=== PATIENT | female | born 1955 | race Caucasian/White ===

== ENCOUNTER → 2018-03-28 | Outpatient (CLI) | payer BC, OTHER ==
[~2018-03-28] MED LIST: DOXY100C2 PO; GABA300C10 PO; LIDO700A5 TD; LISI5TAB7 PO; METH500T97 PO; OXYC-307 PO; SULF1TAB24 PO
== END | disposition home or self-care (01) ==
LOC: RAD 14:06
PROVIDERS: ATTEND Neurological Surgery
DX: Z01.818 Encounter for other preprocedural examination (principal); M50.30 Other cervical disc degeneration, unspecified cervical region; R07.9 Chest pain, unspecified
CPT/HCPCS: 71046; 93005

== ENCOUNTER 2018-11-07 05:45 | Emergency (ER) | payer MEDICARE, OTHER ==
[~2018-11-07] VITALS: Ht 154.9 cm; Wt 55.0 kg
[2018-11-07 05:51] VITALS: BP 138/81
[2018-11-07] MEDS ORDERED: DOXYCYCLINE 100 MG in DEXTROSE 5% 250 ML IV ONE (06:30)
[2018-11-07] MEDS ORDERED: SODIUM CHLORIDE FLUSH 10ML SYR IVF ONE (06:30)
[2018-11-07] MEDS ORDERED: DOXYCYCLINE 100MG TABLET ONE (06:53)
[2018-11-07] MEDS ORDERED: DOXYCYCLINE 100MG TABLET PO ONE (07:00)
--- NOTE | 2018-11-07 07:21 | NUR ---
Patient/Caregiver given discharge instructions and they have confirmed that they understand the instructions. Patient ambulatory with steady gait.
== END 2018-11-07 07:22 | disposition home or self-care (01) ==
LOC: ED 07:03
DX: S60.571A Other superficial bite of hand of right hand, initial encounter (principal); I89.1 Lymphangitis; W55.01XA Bitten by cat, initial encounter; Y93.89 Activity, other specified; Y92.89 Other specified places as the place of occurrence of the external cause; Y99.8 Other external cause status
CPT/HCPCS: 99283

== ENCOUNTER 2019-05-27 21:00 | Emergency (ER) | payer MEDICARE, OTHER ==
[~2019-05-27] VITALS: Ht 154.9 cm; Wt 51.8 kg
[2019-05-27 23:56] VITALS: BP 148/93
== END 2019-05-27 23:58 | disposition home or self-care (01) ==
LOC: ED 23:39
DX: S61.451A Open bite of right hand, initial encounter (principal); L03.113 Cellulitis of right upper limb; Z88.0 Allergy status to penicillin; W55.01XA Bitten by cat, initial encounter; Y93.89 Activity, other specified; Y92.89 Other specified places as the place of occurrence of the external cause; Y99.8 Other external cause status
CPT/HCPCS: 36415; 80048; 82040; 85025; 87040; 96365

== ENCOUNTER 2019-06-03 13:57 | Emergency (ER) | payer MEDICARE, OTHER ==
[~2019-06-03] VITALS: Ht 154.9 cm; Wt 52.0 kg
[2019-06-03 17:18] VITALS: BP 171/88
== END 2019-06-03 17:56 | disposition home or self-care (01) ==
LOC: ED 17:10
DX: R13.14 Dysphagia, pharyngoesophageal phase (principal)
CPT/HCPCS: 70360; 74220; 99284; J7512; Q0163